=== PATIENT | male | born 1935 | race Asian ===

== ENCOUNTER 2017-10-06 10:35 | Emergency (ER) | payer OTHER ==
[~2017-10-06] VITALS: Ht 170.2 cm; Wt 72.6 kg
[2017-10-06 10:38] VITALS: BP_SYST 138
--- NOTE | 2017-10-06 10:38 | NUR ---
Placed in [facility]2 for now, awaiting for open bed. B/B medics from the gym due to hypoglycemia and hypotensive. Report given to Rachel.
--- NOTE | 2017-10-06 10:50 | NUR ---
ER at bedside examining patient.
--- NOTE | 2017-10-06 11:30 | NUR ---
Pt transferred to ER room 4.
--- NOTE | 2017-10-06 11:35 | NUR ---
Pt presents to ER c/o hypoglycemic episode at gym this morning. Pt reports that he was at gym when he began to feel dizzy, nauseous, vomiting x 1, and diaphoretic. Pt denies any pain at the moment. Pt in no acute distress, AOX4 upon assessment but states he is lethargic. Pt reports history of DM, HTN. Family at bedside.
[2017-10-06 11:46] LABS: BASOPHILS % (AUTO) 0.1 % (0.0-2.0); EOSINOPHILS # (AUTO) 0.1 K/uL (0.0-0.4); EOSINOPHILS % (AUTO) 1.2 % (0.0-4.0); HEMATOCRIT 44.3 % (36-54); HEMOGLOBIN 14.3 g/dL (14.0-18.0); LYMPHOCYTES # (AUTO) 0.6 K/uL (1.0-5.5); LYMPHOCYTES % (AUTO) 9.5 % (20.5-51.5); MEAN CORPUSCULAR HEMOGLOBIN 28 pg (27-31); MEAN CORPUSCULAR HGB CONC 32 % (32-36); MEAN CORPUSCULAR VOLUME 86 fL (79.0-98.0); MONOCYTES # (AUTO) 0.2 K/uL (0.0-1.0); MONOCYTES % (AUTO) 3.8 % (1.7-9.3); NEUTROPHILS % (AUTO) 85.4 % (40.0-70.0); PLATELET COUNT (AUTO) 242 K/uL (130-430); RED BLOOD CELL COUNT(AUTO) 5.16 MIL/uL (4.2-6.2); WHITE BLOOD COUNT (AUTO) 5.9 K/uL (4.8-10.8)
[2017-10-06] MEDS ORDERED: NACL 0.9% 1,000 ML IV ONE (12:15)
--- NOTE | 2017-10-06 12:30 | NUR ---
# 22 gauge angiocath placed to LAC. Use of asceptic technique. Opsite placed over site. Blood return noted. Flushed with 10 cc of normal saline. No evidence of infiltration noted. Patient tolerated well.
[2017-10-06 12:32] LABS: ALANINE AMINOTRANSFERASE 111 U/L (12-78); ALBUMIN 3.5 g/dL (3.4-4.8); ANION GAP 7 (5-15); ASPARTATE AMINOTRANSFERASE 86 U/L (10-37); CALCIUM 9.2 mg/dL (8.4-11.0); CHLORIDE 99 mmol/L (98-107); CREATININE 1.45 mg/dL (0.55-1.30); POTASSIUM 5.7 mmol/L (3.5-5.1); SODIUM SERUM 130 mmol/L (136-145); TOTAL BILIRUBIN 0.9 mg/dL (0.0-1.0); UREA NITROGEN, BLOOD 22 mg/dL (8-21)
[2017-10-06 12:36] LABS: GLUCOSE 401 mg/dL (70-99)
--- NOTE | 2017-10-06 13:10 | NUR ---
IVF administered to pt. Pt tolerating well; will continue to monitor.
--- NOTE | 2017-10-06 13:25 | NUR ---
Dr. Hanna at bedside updating pt and family on lab and diagnostic results.
[2017-10-06 14:35] VITALS: BP_SYST 159
--- NOTE | 2017-10-06 14:35 | NUR ---
Patient given written and verbal discharge instructions and verbalizes understanding. ER MD discussed with patient the results and treatment provided. Patient in stable condition. ID arm band removed. IV catheter removed intact and dressing applied, no active bleeding. No Rx given. Patient educated on pain management and to follow up with PMD. Opportunity for questions provided and answered.
== END 2017-10-06 14:35 | disposition home or self-care (01) ==
LOC: SED 10:35
DX: R55 Syncope and collapse (principal); E11.9 Type 2 diabetes mellitus without complications; I10 Essential (primary) hypertension
CPT/HCPCS: 36415; 80053; 82962; 84484; 85025; 93005; 96360; 99285; J7030